=== PATIENT | female | born 1975 | race Asian ===

== ENCOUNTER 2020-10-25 11:20 | Emergency (ER) | payer OTHER ==
[~2020-10-25] VITALS: Ht 149.9 cm; Wt 58.2 kg
[2020-10-25] MEDS ORDERED: ALBU8HFA IH (11:31)
[2020-10-25] MEDS ORDERED: MELO-107 PO (11:31)
[2020-10-25] MEDS ORDERED: LABE100T8 PO (11:31)
[2020-10-25] MEDS ORDERED: SERT50TA12 PO (11:31)
[2020-10-25 11:35] VITALS: BP 189/97
[2020-10-25] MEDS ORDERED: LIDOCAINE 1%/EPI 1:100,000 30 ML VIAL SQ ONE (12:15)
[2020-10-25] MEDS ORDERED: BACITRACIN 0.9 GM PACKET OINTMENT TP ONE (12:15)
[2020-10-25] MEDS ORDERED: LIDOCAINE 1%/EPI 1:200,000/PF 30 ML VIAL ONE (12:27)
== END 2020-10-25 13:30 | disposition home or self-care (01) ==
LOC: EMS 11:20
DX: S01.81XA Laceration without foreign body of other part of head, initial encounter (principal); F32.9 Major depressive disorder, single episode, unspecified; I10 Essential (primary) hypertension; J45.909 Unspecified asthma, uncomplicated; W22.8XXA Striking against or struck by other objects, initial encounter; Y93.89 Activity, other specified; Y92.89 Other specified places as the place of occurrence of the external cause; Y99.8 Other external cause status
CPT/HCPCS: 12013; 99282; J3490 ×2